=== PATIENT | male | born 1935 ===

== ENCOUNTER 2017-03-15 06:00 | Day surgery (SDC) | payer OTHER ==
[~2017-03-15 06:00] MED LIST: ARICEPT5 MG PO; ASPIR 8181 MG PO; ATORVASTATIN CA20 MG PO; BRAIN MIGHT-DH1 EACH PO; INTESTINEX680 MG PO; IRON236 MG PO; LOSARTAN-HCTZ1 EAC2 PO; METFORMIN HCL500 MG PO; NEURONTIN300 MG PO; RANITIDINE HCL300 M1 PO; TRAM1TAB98 PO
== END 2017-03-15 12:10 | disposition home or self-care (01) ==
LOC: AMB-ENDOS 06:00
DX: D12.4 Benign neoplasm of descending colon (principal); D12.3 Benign neoplasm of transverse colon; K64.8 Other hemorrhoids; D13.1 Benign neoplasm of stomach; Z99.11 Dependence on respirator [ventilator] status; E11.9 Type 2 diabetes mellitus without complications; I11.9 Hypertensive heart disease without heart failure; E78.4 Other hyperlipidemia; E03.8 Other specified hypothyroidism; E87.2 Acidosis; G47.33 Obstructive sleep apnea (adult) (pediatric); E66.8 Other obesity; R91.1 Solitary pulmonary nodule; J98.6 Disorders of diaphragm; C19 Malignant neoplasm of rectosigmoid junction

== ENCOUNTER 2017-04-19 07:27 | Day surgery (SDC) | payer OTHER | END 2017-04-19 12:20 | disposition home or self-care (01) | LOC: AMB-ENDOS 07:27 | DX: K29.50 Unspecified chronic gastritis without bleeding (principal); D13.2 Benign neoplasm of duodenum; K31.89 Other diseases of stomach and duodenum ==

== ENCOUNTER 2018-05-01 09:43 | Outpatient (CLI) | payer OTHER | END 2018-05-01 09:45 | disposition home or self-care (01) | LOC: SONOGRAMA 09:43 | DX: E04.1 Nontoxic single thyroid nodule (principal) ==

== ENCOUNTER 2018-05-23 07:15 | Day surgery (SDC) | payer OTHER | END 2018-05-23 11:30 | disposition home or self-care (01) | LOC: AMB-ENDOS 07:15 | DX: K64.8 Other hemorrhoids (principal) ==

== ENCOUNTER 2018-06-13 08:02 | Day surgery (SDC) | payer OTHER ==
[2018-06-13] MEDS ORDERED: CARAFATE1 GM/10 ML PO (10:47)
[2018-06-13] MEDS ORDERED: PROTONIX40 MG PO (10:47)
== END 2018-06-13 12:20 | disposition home or self-care (01) ==
LOC: AMB-ENDOS 08:02
DX: D13.1 Benign neoplasm of stomach (principal)

== ENCOUNTER 2022-09-21 08:51 | Inpatient (IN) | payer OTHER ==
[~2022-09-21 08:51] MED LIST changes: +CARAFATE1 GM/10 ML PO; +PROTONIX40 MG PO
[2022-09-22] MEDS ORDERED: NAMENDA XR28 MG PO (10:35)
[2022-09-22] MEDS ORDERED: JENTADUETO 2.51 EACH PO (10:35)
[2022-09-22] MEDS ORDERED: PLAVIX75 MG PO (10:35)
[2022-09-28] MEDS ORDERED: ATORVASTATIN CA40 MG (08:03)
[2022-09-28] MEDS ORDERED: MEMANTINE HCL10 MG (08:03)
[2022-09-28] MEDS ORDERED: CLOPIDOGREL BIS75 MG (08:04)
[2022-09-28] MEDS ORDERED: PRAMIPEXOLE DI0.5 MG (08:04)
[2022-09-28] MEDS ORDERED: PANTOPRAZOLE SO40 MG (08:04)
[2022-09-28] MEDS ORDERED: DONEPEZIL HCL10 MG (08:05)
[2022-09-28] MEDS ORDERED: ATORVASTATIN CA20 MG (08:07)
[2022-10-05] MEDS ORDERED: HYOSCYAMINE0.125 M1 SL (11:05)
[2022-10-05] MEDS ORDERED: GABAPENTIN100 MG PO (11:06)
[2022-10-05] MEDS ORDERED: Neurin-Sl Tablet Sl SL (11:07)
[2022-10-05] MEDS ORDERED: PRE PROTEIN1 EACH PO (11:07)
[2022-10-05] MEDS ORDERED: PAIN RELIEVER500 M2 PO (11:08)
[2022-10-05] MEDS ORDERED: POLY119PG PO (11:09)
[2022-10-05] MEDS ORDERED: INTESTINEX680 M1 PO (11:11)
== END 2022-10-05 17:32 | disposition home or self-care (01) | DRG 330 ==
LOC: ADM 09-22 08:00 → CIR.AMB 09-27 07:00 → O/R 09-27 07:40 → EDSTATUS 09-27 08:00 → SURG-SUITE 09-27 08:00 → CIR.AMB 09-27 08:00 → SURH 09-27 14:39
PROVIDERS: ADMIT Surgery; ATTEND Surgery
PROC: 07BC4ZZ Excision of Pelvis Lymphatic, Percutaneous Endoscopic Approach (ICD-10-PCS; 2022-09-27)
PROC: 07BB4ZZ Excision of Mesenteric Lymphatic, Percutaneous Endoscopic Approach (ICD-10-PCS; 2022-09-27)
PROC: 3E0F7SF Introduction of Other Gas into Respiratory Tract, Via Natural or Artificial Opening (ICD-10-PCS; 2022-09-27)
PROC: 0DTF4ZZ Resection of Right Large Intestine, Percutaneous Endoscopic Approach (ICD-10-PCS; principal; 2022-09-27 07:00)
PROC: 4A12X4Z Monitoring of Cardiac Electrical Activity, External Approach (ICD-10-PCS; 2022-09-28)
PROC: 30233N1 Transfusion of Nonautologous Red Blood Cells into Peripheral Vein, Percutaneous Approach (ICD-10-PCS; 2022-09-29)
PROC: 0DH67UZ Insertion of Feeding Device into Stomach, Via Natural or Artificial Opening (ICD-10-PCS; 2022-09-30)
PROC: 0D9670Z Drainage of Stomach with Drainage Device, Via Natural or Artificial Opening (ICD-10-PCS; 2022-09-30)
PROC: 02HV33Z Insertion of Infusion Device into Superior Vena Cava, Percutaneous Approach (ICD-10-PCS; 2022-10-01)
DX: C18.2 Malignant neoplasm of ascending colon (principal); C18.7 Malignant neoplasm of sigmoid colon; D62 Acute posthemorrhagic anemia; K56.7 Ileus, unspecified; N17.8 Other acute kidney failure; I49.9 Cardiac arrhythmia, unspecified; D12.6 Benign neoplasm of colon, unspecified; D13.1 Benign neoplasm of stomach; R59.0 Localized enlarged lymph nodes; I13.10 Hypertensive heart and chronic kidney disease without heart failure, with stage 1 through stage 4 chronic kidney disease, or unspecified chronic kidney disease; E11.22 Type 2 diabetes mellitus with diabetic chronic kidney disease; N18.9 Chronic kidney disease, unspecified; G47.33 Obstructive sleep apnea (adult) (pediatric); E03.9 Hypothyroidism, unspecified; G30.8 Other Alzheimer's disease; F02.80 Dementia in other diseases classified elsewhere, unspecified severity, without behavioral disturbance, psychotic disturbance, mood disturbance, and anxiety; Z79.84 Long term (current) use of oral hypoglycemic drugs; Z79.4 Long term (current) use of insulin